=== PATIENT | male | born 1970 | race Caucasian/White ===

== ENCOUNTER → 2018-02-08 | Outpatient (CLI) | payer MEDICAID ==
[~2018-02-08] MED LIST: CATHETER FLUSH 10 ML SYR IV PRN; REGADENOSON 0.4 MG/5 ML SYR (LEXISCAN) IV ONE
[2018-02-08 09:40] VITALS: BP 128/90
[2018-02-08 11:55] VITALS: BP 120/81
--- NOTE | 2018-02-08 11:55 | Cardiology Stress Test Report ---
Stress Test Report Type of NM Stress Test: Test Type: LEXISCAN 0.4MG/5ML Date of Procedure/Referring: Date of Procedure: Feb 08, 2018 PCP Geraldine Nicholson MD Admitting Physician Geraldine Nicholson MD Indications: Chest pain Baseline Heart Rate: 87 Baseline Blood Pressure: Blood Pressure Systolic: 120 Blood Pressure Diastolic: 81 Baseline EKG: Baseline EKG: sinus rhythm Summary: The patient was brought to the stress lab after informed consent was taken. Lexiscan stress test was performed according to the protocol. 0.4 mg of IV Lexiscan was given. Low-grade exercise was performed. Baseline EKG showed sinus rhythm at 87 BPM. Blood pressure 120/81 mmHg. Maximum heart rate 121 BPM and blood pressure 146/90 mmHg. Patient did not have any chest pain, EKG changes or arrhythmias during the stress test. 10.54 mCi of Myoview were given for rest imaging and 32.3 mCi of Myoview was given for stress imaging. Transient ischemic dilatation score was 1.08. EF 66 percent with no wall motion abnormalities. Normal perfusion during rest and stress. Conclusion: Pharmacological stress test was negative for ischemia. Normal LV function with no wall motion abnormalities. Normal perfusion during rest and stress imaging. Bibi COOK MD Feb 08, 2018 11:55 am
== END ==
LOC: CARD 08:09
PROVIDERS: ATTEND Pediatrics
DX: R07.89 Other chest pain (principal)
CPT/HCPCS: 78452; 93017

== ENCOUNTER 2018-03-01 11:13 | Outpatient (RCR) | payer MEDICAID | END 2018-05-30 | disposition home or self-care (01) | LOC: CARD 11:13 | PROVIDERS: ATTEND Pediatrics | DX: R55 Syncope and collapse (principal) ==

== ENCOUNTER → 2018-03-27 | Outpatient (CLI) | payer MEDICAID | LOC: CARD 10:34 | PROVIDERS: ATTEND Pediatrics | DX: R55 Syncope and collapse (principal) | CPT/HCPCS: 93306 ==

== ENCOUNTER → 2019-10-11 | Outpatient (CLI) | payer MEDICAID ==
--- NOTE | 2019-10-11 13:47 | Diagnostic Imaging Report ---
INDICATION: Palpable lump above the umbilicus TECHNIQUE: Multiple real time keith scale sonographic images were obtained of the abdominal wall. CORRELATION STUDY: None FINDINGS: Ultrasound imaging of the anterior abdominal wall demonstrates what appears to be 3 focal areas of abdominal wall hernia defect. One area is located in and around the level of the umbilicus. There is what appears to be herniated fat with a somewhat stalk-like appearance. The herniated contents measuring approximately 2.8 x 1.0 x 2.2 cm. An additional area slightly superior to this with herniated contents measures approximately 2.1 x 1.6 x 1.0 cm. A 3rd area noted in the left upper quadrant is present. There is some abnormal movement with Valsalva. A definitive hernia defect however cannot be discretely localized. IMPRESSION: 1.Two midline abdominal wall hernia defects with what appears to be herniated fat. Question of potential 3rd hernia defect along the left upper quadrant abdominal wall. If further imaging evaluation desired, CT imaging would likely be an additional diagnostic utility. Dictated by: Dictated on workstation # [id number]
== END ==
LOC: RAD 09:43
PROVIDERS: ATTEND Nurse Practitioner Family
DX: K42.9 Umbilical hernia without obstruction or gangrene (principal)
CPT/HCPCS: 76705

== ENCOUNTER 2019-11-06 05:38 | Outpatient (CLI) | payer MEDICAID ==
[~2019-11-06] VITALS: Ht 170.2 cm; Wt 97.7 kg
[2019-11-06] MEDS ORDERED: MULT-1102 PO (10:02)
[2019-11-06] MEDS ORDERED: PANT40TA3 PO (10:02)
[2019-11-06] MEDS ORDERED: HYDR25TA4 PO (10:02)
[2019-11-06] MEDS ORDERED: DIVA-21 PO (10:02)
[2019-11-06] MEDS ORDERED: ALPR1TAB7 PO (10:02)
[2019-11-06] MEDS ORDERED: RISP1TAB3 PO (10:02)
[2019-11-06] MEDS ORDERED: QUET100T69 PO (10:02)
[2019-11-06] MEDS ORDERED: ATOR40TA70 PO (10:02)
[2019-11-06] MEDS ORDERED: NAPR-915 PO (10:02)
[2019-11-07] MEDS ORDERED: HYDR-34 PO (12:02)
== END 2019-11-06 10:07 | disposition home or self-care (01) ==
LOC: PREOP 05:38
PROVIDERS: ATTEND Surgery
DX: Z01.818 Encounter for other preprocedural examination (principal)

== ENCOUNTER 2019-11-07 09:33 | Day surgery (SDC) | payer MEDICAID ==
--- NOTE | 2019-11-06 10:12 | HISTORY AND PHYSICAL ---
DATE OF SERVICE: HISTORY AND PHYSICAL PROCEDURE DATE: 11/07/2019. ATTENDING PHYSICIAN: Dr. Gricel Moya. HISTORY OF PRESENT ILLNESS: The patient is a 49-year-old male who was referred over to us for pain and bulge in the umbilical region. The patient reports he has noticed this for the last 2-3 years and believes this has become slightly larger in size. He reports that he did have a laparoscopic cholecystectomy in 2011. He reports that he was seen by his primary care physician and an ultrasound was performed, which did show abdominal wall hernia defect and around the level of the umbilicus what appears to be herniated fat. There is also an additional hernia slightly superior to this. PAST MEDICAL HISTORY: Depression, ADHD, PTSD, OCD, anxiety, bipolar, hypercholesterolemia, hypertension, arthritis, gastroesophageal reflux disease, history of alcoholism, history of IV drug use, history of pancreatitis, a suicide attempt in 2014, and agoraphobia with panic disorder. PAST SURGICAL HISTORY: ORIF 1988, laparoscopic cholecystectomy in 2011. ALLERGIES: DILAUDID, LUVOX. MEDICATIONS: Atorvastatin 40 mg daily, Depakote ER 500 mg daily, hydrochlorothiazide 25 mg daily, naproxen 500 mg b.i.d. p.r.n., potassium daily, Protonix 40 mg daily, quetiapine fumarate 100 mg 1-1/2 tablets at bedtime, Risperdal 1 mg b.i.d., multivitamin, and Xanax 1 mg b.i.d. SOCIAL HISTORY: Previous for IV drug use, previous for alcohol. FAMILY HISTORY: Father with lung cancer, diabetes, myocardial infarction, and hypertension. Grandmother with breast cancer. Grandparent with diabetes, myocardial infarction. Grandmother and grandfather with DVT. Vital signs - blood pressure is 118/60. Current weight is 211.3, 5 feet 7 inches. REVIEW OF SYSTEMS: Well-nourished male with a mental health disease. He is not experiencing any shortness of breath or difficulty breathing. No chest pain, palpitations or diaphoresis. No nausea or vomiting. He does report episodes of abdominal pain in the umbilical region. No diarrhea or constipation. No red blood per rectum. No dark tarry stools. No fever or chills. No recent inadvertent weight loss. All other review of systems is negative. PHYSICAL EXAMINATION: CHEST: Clear. Good breath sounds bilaterally. HEART: Regular, no murmurs. EXTREMITIES: No lower extremity edema. Negative Homans sign. HEENT: No scleral icterus. NECK: No cervical lymphadenopathy. ABDOMEN: Soft, nondistended. With patient performing Valsalva maneuver, there is an incisional hernia at the level of the umbilicus, which is painful upon palpation; however, it does appear to be reducible. With the patient lying and performing stomach crunch, he also does have a diastasis recti noted. SKIN: Warm, dry and pink. NEUROLOGIC: Awake, alert, and oriented x3. ASSESSMENT AND PLAN: A 49-year-old male with a symptomatic incisional hernia, who also has a diastasis recti. At this time, we will recommend proceeding with repair of the incisional hernia. The risks and benefits of the procedure as well as the procedure and home care instructions were explained to the patient. The patient verbalized understanding of instructions and agrees to proceed as planned. At this time, we will proceed with scheduling the patient for an incisional hernia repair with mesh. Job ID: [id number] DocumentID: [id number] Dictated Date: 11/05/2019 09:22:08 Sand Polisher Date: 11/05/2019 10:37:57 Dictated By: DAVE NAYLOR
[2019-11-07] VITALS (12 sets, daily range): BP systolic 34–146; BP diastolic 72–91
[~2019-11-07] VITALS: Ht 170.2 cm; Wt 97.7 kg
[~2019-11-07 09:33] MED LIST changes: +ALPR1TAB7 PO; +ATOR40TA70 PO; -CATHETER FLUSH 10 ML SYR IV PRN; +DIVA-21 PO; +HYDR25TA4 PO; +MULT-1102 PO; +NAPR-915 PO; +PANT40TA3 PO; +QUET100T69 PO; -REGADENOSON 0.4 MG/5 ML SYR (LEXISCAN) IV ONE; +RISP1TAB3 PO
[2019-11-07] MEDS ORDERED: BUP/EPI 0.5% 1:200,000 (SENSORCAINE) 30 ML VIAL ONE (09:43)
[2019-11-07] MEDS: LACTATED RINGERS 1,000 ML IV PRN ×2 (10:00→12:28)
[2019-11-07] MEDS ORDERED: ceFAZolin 2 GM/50 ML NS 50 ML IV ONE (10:00)
--- NOTE | 2019-11-07 10:49 | Progress Note-Pre Operative ---
Pre-Operative Progress Note H&P Reviewed The H&P was reviewed, patient examined and no changes noted. Date Seen by Provider: Nov 07, 2019 Time Seen by Provider: 10:30 Date H&P Reviewed: Nov 07, 2019 Time H&P Reviewed: 10:30 Pre-Operative Diagnosis: ventral abd inc hernia, reducible COURTNEY PERALTA MD Nov 07, 2019 10:49
[2019-11-07] MEDS ORDERED: MIDAZOLAM 2 MG/2 ML (VERSED) VIAL ONE ×2 (10:59→11:35)
[2019-11-07] MEDS ORDERED: ACETAMINOPHEN 325 MG TABLET PO PRN (11:00)
[2019-11-07] MEDS ORDERED: morphine INJ 10 MG/ML 1ML (SYR OR VIAL) IVP PRN ×2 (11:00)
[2019-11-07] MEDS ORDERED: ONDANSETRON 4 MG/2 ML (SDV) Z0FRAN IVP PRN ×2 (11:00→13:15)
[2019-11-07] MEDS ORDERED: oxyCODONE/APAP 5/325MG (PERCOCET 5) TABLET PO PRN (11:00)
[2019-11-07] MEDS ORDERED: MIDAZOLAM 2 MG/2 ML (VERSED) VIAL IVP ONE (11:15)
[2019-11-07] MEDS ORDERED: ONDANSETRON 4 MG/2 ML (SDV) Z0FRAN ONE (11:34)
[2019-11-07] MEDS ORDERED: DEXAMETHASONE 10 MG/ML (DECADRON) 1 ML VIAL ONE (11:34)
[2019-11-07] MEDS ORDERED: fentaNYL INJECTION 100 MCG/2 ML AMP ONE ×2 (11:34→12:30)
[2019-11-07] MEDS ORDERED: SEVOFLURANE (ULTANE) 15 ML INHAL SOLN ONE (11:34)
[2019-11-07] MEDS ORDERED: LIDOCAINE PF 2% 5 ML (XYLOCAINE) VIAL ONE (11:34)
[2019-11-07] MEDS ORDERED: proPOfol 200 MG/20 ML (DIPRIVAN) VIAL IV ONE (11:34)
[2019-11-07] MEDS ORDERED: HYDR-34 PO (12:02)
--- NOTE | 2019-11-07 12:03 | Discharge Inst-Surgical ---
D/C Lap Instructions-KATHRYN New, Converted, or Re-Newed RX: RX on Chart Follow Up Appt in 2 weeks Activity as tolerated No driving for 24 hours No driving while on pain medications Incentive Spirometry use every 2 hours while awake Regular Diet Symptoms to Report: Fever over 101 degree F, Nausea/Vomiting Infection Signs and Symptoms to report: Increased redness, Foul odor of wound, Increased drainage Bathing instructions: May shower Operative Area Clean/Dry; Keep incision clean/dry If any problems/questions: Contact your physician or go to Emergency Room COURTNEY PERALTA MD Nov 07, 2019 12:03
[2019-11-07] MEDS ORDERED: morphine INJ 10 MG/ML 1ML (SYR OR VIAL) IVP ONE (13:15)
[2019-11-07] MEDS ORDERED: fentaNYL INJECTION 100 MCG/2 ML AMP IVP ONE (13:15)
--- NOTE | 2019-11-07 14:06 | Progress Note-Post Operative ---
Post-Operative Progess Note Surgeon (s)/Head Of Stock (s) Surgeon COURTNEY PERALTA MD Head Of Stock: wanda ruth UNDERWRITING CLERK Pre-Operative Diagnosis ventral abd inc hernia, reducible Post-Operative Diagnosis same Procedure & Operative Findings Date of Procedure 11/07/19 Procedure Performed/Findings ventral abd inc hernia repair with mesh. Anesthesia Type general LMA Estimated Blood Loss Estimated blood loss (mL): minimal Specimens/Packing Specimens Removed hernia sac COURTNEY PERALTA MD Nov 07, 2019 14:06
--- NOTE | 2019-11-07 15:06 | Anesthesia-General Post-Op ---
General Patient Condition Mental Status/LOC: Same as Preop Cardiovascular: Satisfactory Nausea/Vomiting: Absent Respiratory: Satisfactory Pain: Controlled Complications: Absent Post Op Complications Complications None Follow Up Care/Instructions Patient Instructions None needed. Anesthesia/Patient Condition Patient Condition Patient is doing well, no complaints, stable vital signs, no apparent adverse anesthesia problems. SAMIA ROBERTSON DO Nov 07, 2019 15:06
--- NOTE | 2019-11-07 21:57 | OPERATIVE REPORT ---
DATE OF SERVICE: ATTENDING PRIMARY CARE PHYSICIAN: Dr. Gricel Moya. PREOPERATIVE DIAGNOSIS: Symptomatic reducible ventral abdominal incisional hernia. POSTOPERATIVE DIAGNOSIS: Symptomatic reducible ventral abdominal incisional hernia. PROCEDURE: Open ventral abdominal hernia repair with mesh. SURGEON: Courtney Peralta MD. TECHNICAL ACCOUNT REPRESENTATIVE: Colton Dyson APRN. ANESTHESIA: General endotracheal. ESTIMATED BLOOD LOSS: Minimal. FINDINGS: Small umbilical hernia. He also does have a component of diastasis recti in the epigastric region; however, no additional hernias. DISPOSITION: The patient tolerated the procedure well. INDICATIONS: The patient is a 49-year-old male who was referred to us for pain and bulge in the umbilical region. He noticed this several years ago, but has grown larger in size and painful. He does lift weights regularly and states that he was doing an activity and felt an outpouching, which increased pain over time. Upon examination, he was found to have a reducible hernia; however, very tender to palpation. DESCRIPTION OF PROCEDURE: The patient was brought to the operating room, laid supine on the table. After adequate IV pain and sedative medications and general endotracheal intubation, the abdomen was prepped and draped in standard surgical fashion. A 0.5% Marcaine with epinephrine was used to anesthetize the supraumbilical rim along the previous skin incision from his laparoscopic cholecystectomy. The subcutaneous tissue was then dissected down using cautery. The hernia sac was identified and completely dissected out. The hernia content was omental fat, which was excised including the sac under direct visualization using electrocautery with visualization of good hemostasis. The omental adhesions towards the superior aspect of the anterior abdominal wall were then bluntly dissected using a finger. A 6.4 cm coated polypropylene mesh was then placed into the defect, which was approximately 2 cm in size and sutured to the fascia concentrically in an interrupted fashion transfascially using 0 Prolene sutures. Good hemostasis was observed. The umbilicus was then pexy'd to the fascia using 3-0 Vicryl interrupted suture and the subcutaneous tissue was then reapproximated using 3-0 Vicryl interrupted sutures. Skin was closed using 4-0 Monocryl running subcuticular suture. Wound was then cleaned and covered with Dermabond followed by tonsil sponges followed by 4 x 4 gauze and large Op-Site. The patient tolerated the procedure well. We will start IV normal pain medication as well as a clear liquid diet. Once he is tolerating clears, has good pain control with oral pain medications, ambulating well, we will discharge him home. He will be instructed to do absolutely no heavy lifting or exertion for the first 2 weeks and then slowly increase activity as tolerated in a gradual stepwise fashion until he reaches 6 weeks from the surgery date and then he has no restrictions. Job ID: [id number] DocumentID: [id number] Dictated Date: 11/07/2019 12:53:55 Catheter Builder Date: 11/07/2019 21:56:17 Dictated By: COURTNEY PERALTA MD
== END 2019-11-07 15:20 | disposition home or self-care (01) ==
LOC: SDC 09:33
PROVIDERS: ATTEND Surgery
DX: K43.2 Incisional hernia without obstruction or gangrene (principal); K42.9 Umbilical hernia without obstruction or gangrene; K66.0 Peritoneal adhesions (postprocedural) (postinfection); Z11.2 Encounter for screening for other bacterial diseases; F90.9 Attention-deficit hyperactivity disorder, unspecified type; F43.10 Post-traumatic stress disorder, unspecified; F41.9 Anxiety disorder, unspecified; F31.9 Bipolar disorder, unspecified; E78.00 Pure hypercholesterolemia, unspecified; I10 Essential (primary) hypertension; M19.91 Primary osteoarthritis, unspecified site; K21.9 Gastro-esophageal reflux disease without esophagitis; F10.21 Alcohol dependence, in remission; F40.01 Agoraphobia with panic disorder; Z87.19 Personal history of other diseases of the digestive system; Z91.5 Personal history of self-harm; Z79.899 Other long term (current) drug therapy
CPT/HCPCS: 87081

== ENCOUNTER 2021-02-15 22:57 | Emergency (ER) | payer MEDICAID ==
[~2021-02-15] VITALS: Ht 170 cm; Wt 86.0 kg
[~2021-02-15 22:57] MED LIST changes: +HYDR-34 PO; -PANT40TA3 PO; +PANT40TA52 PO; +QUET100T33 PO; -QUET100T69 PO; -RISP1TAB3 PO; +RISP1TAB93 PO
[2021-02-15] MEDS ORDERED: ASPIRIN 81 MG CHEW (CHILDREN'S ASA) PO ONE (23:15)
[2021-02-15] MEDS ORDERED: NITROGLYCERIN 0.4 MG SL TABS BTL 25'S SL PRN (23:15)
[2021-02-15 23:18] LABS: BASOPHILS # (AUTO) 0.1 10^3/uL (0.0-0.1); BASOPHILS % (AUTO) 1 % (0-10); EOSINOPHILS # (AUTO) 0.1 10^3/uL (0.0-0.3); EOSINOPHILS % (AUTO) 1 % (0-10); HEMATOCRIT 48 % (40-54); HEMOGLOBIN 16.2 g/dL (13.3-17.7); LYMPHOCYTES # (AUTO) 2.7 10^3/uL (1.0-4.0); LYMPHOCYTES % (AUTO) 29 % (12-44); MEAN CORPUSCULAR HEMOGLOBIN 31 pg (25-34); MEAN CORPUSCULAR HGB CONC 34 g/dL (32-36); MEAN CORPUSCULAR VOLUME 93 fL (80-99); MEAN PLATELET VOLUME 9.3 fL (9.0-12.2); MONOCYTES # (AUTO) 0.8 10^3/uL (0.0-1.0); MONOCYTES % (AUTO) 9 % (0-12); NEUTROPHILS # (AUTO) 5.7 10^3/uL (1.8-7.8); NEUTROPHILS % (AUTO) 61 % (42-75); PLATELET COUNT 248 10^3/uL (130-400); WHITE BLOOD COUNT 9.3 10^3/uL (4.3-11.0)
[2021-02-15 23:28] LABS: INR 0.9 (0.8-1.4); PARTIAL THROMBOPLASTIN TIME 28 SEC (24-35); PROTHROMBIN TIME PATIENT 12.8 SEC (12.2-14.7)
[2021-02-15 23:29] LABS: ALBUMIN 4.5 GM/DL (3.2-4.5); CHLORIDE 98 MMOL/L (98-107); POTASSIUM 3.3 MMOL/L (3.6-5.0); SODIUM 139 MMOL/L (135-145)
[2021-02-15 23:31] LABS: AMYLASE 31 U/L (25-125); CALCIUM 9.6 MG/DL (8.5-10.1)
[2021-02-15 23:32] LABS: GLUCOSE 112 MG/DL (70-105); TOTAL PROTEIN 8.1 GM/DL (6.4-8.2)
[2021-02-15 23:33] LABS: CARBON DIOXIDE 27 MMOL/L (21-32)
[2021-02-15 23:34] LABS: BILIRUBIN,TOTAL 0.4 MG/DL (0.1-1.0)
[2021-02-15 23:35] LABS: ALKALINE PHOSPHATASE 93 U/L (40-136)
[2021-02-15 23:36] LABS: CREATININE SERUM 1.11 MG/DL (0.60-1.30); GFR ESTIMATED > 60
[2021-02-15 23:37] LABS: BUN/CREATININE RATIO 17
[2021-02-15 23:38] LABS: ALANINE AMINOTRANSFERASE 33 U/L (0-55); MAGNESIUM 1.9 MG/DL (1.6-2.4)
[2021-02-15 23:39] LABS: CREATINE KINASE 221 U/L (30-200); LIPASE 42 U/L (8-78)
[2021-02-15 23:47] LABS: CREATINE KINASE MB 3.3 NG/ML (<6.6)
[2021-02-16 00:14] LABS: BILIRUBIN,URINE NEGATIVE (NEGATIVE); CLARITY,URINE CLEAR; COLOR,URINE YELLOW; GLUCOSE, URINE (UA) NEGATIVE (NEGATIVE); KETONES,URINE NEGATIVE (NEGATIVE); LEUKOCYTE ESTERASE ,URINE NEGATIVE (NEGATIVE); NITRITE,URINE NEGATIVE (NEGATIVE); PROTEIN,URINE NEGATIVE (NEGATIVE)
[2021-02-16 00:22] LABS: BACTERIA,URINE NEGATIVE /HPF; SQUAMOUS EPITHELIAL CELL,UR RARE /HPF
[2021-02-16 00:29] LABS: AMPHETAMINE SCREEN, URINE POSITIVE (NEGATIVE); BARBITURATE SCREEN URINE NEGATIVE (NEGATIVE); BENZODIAZEPINES SCREEN URINE NEGATIVE (NEGATIVE); CANNABINOID SCREEN, URINE NEGATIVE (NEGATIVE); COCAINE SCREEN URINE NEGATIVE (NEGATIVE); METHADONE STAT NEGATIVE (NEGATIVE); METHAMPHETAMINE SCREEN URINE S POSITIVE (NEGATIVE); OPIATE SCREEN URINE NEGATIVE (NEGATIVE); OXYCODONE STAT NEGATIVE (NEGATIVE); PROPOXYPHENE STAT NEGATIVE (NEGATIVE); TRICYCLIC ANTIDEPRESSANTS SCRE POSITIVE (NEGATIVE)
[2021-02-16] MEDS ORDERED: KETOROLAC 30 MG/ML VIAL IVP STA (00:29)
[2021-02-16] MEDS ORDERED: PANTOPRAZOLE 40 MG (PROTONIX) VIAL IV ONE (00:30)
[2021-02-16] MEDS ORDERED: ONDANSETRON 4 MG/2 ML (SDV) Z0FRAN IVP ONE (00:30)
[2021-02-16] MEDS ORDERED: KCL 10 MEQ TAB (MICRO K) PO ONE (00:30)
[2021-02-16 01:06] LABS: FIBRIN DEGRADATION PRODUCTS < 0.27 UG/ML (0.00-0.49)
--- NOTE | 2021-02-16 02:03 | ED Chest Pain ---
General Chief Complaint: Chest Pain Stated Complaint: CHEST PAIN Source: patient (DIFFICULT HISTORIAN, SPEECH RAPID AND ERRATIC--DIFFICULT TO KEEP ON SUBJECT) History of Present Illness Date Seen by Provider: Feb 15, 2021 Time Seen by Provider: 23:08 Initial Comments PT ARRIVES VIA POV C/O CHEST PAIN SINCE AROUND 1500 TODAY PAIN BEGAN IMMEDIATELY AFTER SMOKING "ICE" / METH STATES PAIN IS IN CENTER OF CHEST, AND RADIATES DOWN LEFT ARM NO SHORTNESS OF BREATH NO PALPITATIONS NO DIZZINESS OR SYNCOPE NO SWEATS NO SWELLING IN LEGS/ FEET HAS NAUSEA, BUT STATES HE ALWAYS HAS NAUSEA STATES HE TOOK 2 OF HIS MOM'S NITROGLYCERINE AND ASPIRIN AND PAIN WENT AWAY, THEN PAIN CAME BACK AROUND 1800 TONIGHT AND HAS CONTINUED STATES HE TOOK "1000 MG OF SEROQUEL" PRIOR TO ARRIVAL--STATES IT IS HIS "NORMAL DOSE" DENIES HISTORY OF SIMILAR PT HAS LONG HISTORY OF IV DRUG USE, INCLUDING "ICE" / METH, AND COCAINE, WELL IV ANABOLIC STEROIDS STATES NOW HE MOSTLY JUST SMOKES "ICE" / METH PT HAS LONG HISTORY OF ALCOHOL ABUSE--20 BEERS / DAY--CLAIMS NO ALCOHOL SINCE MARCH 2020 PT STATES HE DOES NOT SMOKE CIGARETTES DENIES HISTORY OF CHEST PAIN PCP: [facility] Allergies and Home Medications Allergies Coded Allergies: hydromorphone (Verified Adverse Reaction, Unknown, caused bp to drop, 11/06/19) Home Medications Alprazolam 1 Mg Tablet, 1 MG PO BID PRN for ANXIETY, (Reported) Atorvastatin Calcium 40 Mg Tablet, 40 MG PO HS, (Reported) Divalproex Sodium 500 Mg Tab.er.24h, 500 MG PO BID, (Reported) Hydrochlorothiazide 25 Mg Tablet, 25 MG PO DAILY, (Reported) Hydrocodone Bit/Acetaminophen 1 Ea Tablet, 1 EACH PO Q4H PRN for PAIN-MODERATE Prescribed by: COURTNEY PERALTA on 11/07/19 1202 Multivit-Min/Folic/Vit K/Lycop 1 Each Tablet, 1 EACH PO DAILY, (Reported) Naproxen 500 Mg Tablet, 500 MG PO BID, (Reported) Pantoprazole Sodium 40 Mg Tablet.dr, 40 MG PO DAILY, (Reported) Pantoprazole Sodium 40 Mg Tablet.dr, 40 MG PO DAILY Prescribed by: GLADYS MCLEAN on 02/16/21 0242 Quetiapine Fumarate 100 Mg Tablet, 100 MG PO HS, (Reported) Risperidone 1 Mg Tablet, 1 MG PO BID, (Reported) Patient Home Medication List Home Medication List Reviewed: Yes Review of Systems Review of Systems Constitutional: no symptoms reported; No diaphoresis, No dizziness, No fever EENTM: No Symptoms Reported Respiratory: No Symptoms Reported; Denies Cough, Denies Shortness of Air Cardiovascular: See HPI, Chest Pain; Denies Edema, Denies Lightheadedness, Denies Palpitations, Denies Syncope Gastrointestinal: See HPI; Denies Abdominal Pain; Nausea; Denies Vomiting Genitourinary: No Symptoms Reported Musculoskeletal: no symptoms reported; No back pain Skin: no symptoms reported Psychiatric/Neurological: See HPI, Anxiety Endocrine: No Symptoms Reported Hematologic/Lymphatic: No Symptoms Reported Past Cplgqon-Aommdq-Pugsby Hx Past Med/Social Hx: Reviewed and Corrections made Patient Social History Alcohol Use: Past History (20 BEERS / DAY) Drug of Choice: +IV METH, COCAINE, ANABOLIC STEROIDS-NOW SMOKES "ICE"/METH Smoking Status: Never a Smoker 2nd Hand Smoke Exposure: No Recent Hopitalizations: No Immunizations Up To Date Date of Influenza Vaccine: May 30, 2019 Seasonal Allergies Seasonal Allergies: No Past Medical History Surgeries: Yes (JAW FRACTURE/REPAIR;UMBILICAL HERNIA REPAIR) Abdominal, Gallbladder Respiratory: No Cardiac: Yes High Cholesterol, Hypertension Neurological: Yes Headaches /Migraines, Neuropathy Genitourinary: No Gastrointestinal: Yes (CHOLECYSTECTOMY-HAD PANCREATITIS PRIOR TO CHOLECYSTE CTOMY;UMB HERNIA REPAIR) Abdominal Hernia, Pancreatitis, Gall Bladder Disease Musculoskeletal: Yes Arthritis, Chronic Back Pain, Fractures Endocrine: No HEENT: Yes Tinnitis Cancer: No Psychosocial: Yes (POLYSUBSTANCE ABUSE) Anxiety, PTSD, Bipolar, Depression Integumentary: No (TATTOOS) Blood Disorders: No Family Medical History SOCIAL HISTORY: -ETOH--DRANK 20 BEERS A DAY, STATES NONE SINCE MARCH OF 2020 -DRUGS--+ IV "ICE"/ METH USE, + IV COCAINE USE, + IV ANABOLIC STEROID USE. STATES NOW HE MOSTLY SMOKES "ICE"/ METH. -DENIES SMOKING CIGARETTES Physical Exam Vital Signs Vital Signs - First Documented 02/15/21 02/16/21 23:04 02:52 Temp 35.6 Pulse 99 Resp 20 B/P (MAP) 138/112 (121) Pulse Ox 99 O2 Delivery Room Air Capillary Refill : Height, Weight, BMI Height: '" Weight: lbs. oz. kg; 33.72 BMI Method: General Appearance: No Apparent Distress, WD/WN, Anxious, Other (SPEECH VERY RAPID, AND ERRATIC, DIFFICULT TO KEEP ON SUBJECT) Neck: Normal Inspection Respiratory: Chest Non Tender, Normal Breath Sounds, No Accessory Muscle Use, No Respiratory Distress Cardiovascular: Regular Rate, Rhythm, No Murmur Gastrointestinal: Non Tender, Soft Extremity: Normal Inspection, Normal Range of Motion Neurologic/Psychiatric: Alert, Oriented x3, No Motor/Sensory Deficits, presser hand II- XII Norm as Tested Skin: Normal Color, Warm/Dry, Tattoos/Piercings (MULTIPLE TATTOOS) Progress/Results/Core Measures Results/Orders Lab Results Laboratory Tests Test 02/15/21 23:10 02/16/21 00:06 02/16/21 02:06 Range/Units White Blood Count 9.3 4.3-11.0 10^3/uL Red Blood Count 5.23 4.30-5.52 10^6/uL Hemoglobin 16.2 13.3-17.7 g/dL Hematocrit 48 40-54 % Mean Corpuscular Volume 93 80-99 fL Mean Corpuscular Hemoglobin 31 25-34 pg Mean Corpuscular Hemoglobin Concent 34 32-36 g/dL Red Cell Distribution Width 12.0 10.0-14.5 % Platelet Count 248 130-400 10^3/uL Mean Platelet Volume 9.3 9.0-12.2 fL Immature Granulocyte % (Auto) 0 % Neutrophils (%) (Auto) 61 42-75 % Lymphocytes (%) (Auto) 29 12-44 % Monocytes (%) (Auto) 9 0-12 % Eosinophils (%) (Auto) 1 0-10 % Basophils (%) (Auto) 1 0-10 % Neutrophils # (Auto) 5.7 1.8-7.8 10^3/uL Lymphocytes # (Auto) 2.7 1.0-4.0 10^3/uL Monocytes # (Auto) 0.8 0.0-1.0 10^3/uL Eosinophils # (Auto) 0.1 0.0-0.3 10^3/uL Basophils # (Auto) 0.1 0.0-0.1 10^3/uL Immature Granulocyte # (Auto) 0.0 0.0-0.1 10^3/uL Prothrombin Time 12.8 12.2-14.7 SEC INR Comment 0.9 0.8-1.4 Activated Partial Thromboplast Time 28 24-35 SEC D-Dimer < 0.27 0.00-0.49 UG/ML Sodium Level 139 135-145 MMOL/L Potassium Level 3.3 L 3.6-5.0 MMOL/L Chloride Level 98 98-107 MMOL/L Carbon Dioxide Level 27 21-32 MMOL/L Anion Gap 14 5-14 MMOL/L Blood Urea Nitrogen 19 H 7-18 MG/DL Creatinine 1.11 0.60-1.30 MG/DL Estimat Glomerular Filtration Rate > 60 BUN/Creatinine Ratio 17 Glucose Level 112 H 70-105 MG/DL Calcium Level 9.6 8.5-10.1 MG/DL Corrected Calcium 9.2 8.5-10.1 MG/DL Magnesium Level 1.9 1.6-2.4 MG/DL Total Bilirubin 0.4 0.1-1.0 MG/DL Aspartate Amino Transf (AST/SGOT) 28 5-34 U/L Alanine Aminotransferase (ALT/SGPT) 33 0-55 U/L Alkaline Phosphatase 93 40-136 U/L Total Creatine Kinase 221 H 30-200 U/L Creatine Kinase MB 3.3 <6.6 NG/ML Myoglobin 90.3 10.0-92.0 NG/ML Troponin I < 0.028 < 0.028 <0.028 NG/ML B-Type Natriuretic Peptide < 10.0 <100.0 PG/ML Total Protein 8.1 6.4-8.2 GM/DL Albumin 4.5 3.2-4.5 GM/DL Amylase Level 31 25-125 U/L Lipase 42 8-78 U/L Serum Alcohol < 10 <10 MG/DL Urine Color YELLOW Urine Clarity CLEAR Urine pH 7.0 5-9 Urine Specific [place] 1.025 H 1.016-1.022 Urine Protein NEGATIVE NEGATIVE Urine Glucose (UA) NEGATIVE NEGATIVE Urine Ketones NEGATIVE NEGATIVE Urine Nitrite NEGATIVE NEGATIVE Urine Bilirubin NEGATIVE NEGATIVE Urine Urobilinogen 0.2 < = 1.0 MG/DL Urine Leukocyte Esterase NEGATIVE NEGATIVE Urine RBC (Auto) NEGATIVE NEGATIVE Urine RBC NONE /HPF Urine WBC NONE /HPF Urine Squamous Epithelial Cells RARE /HPF Urine Crystals NONE /LPF Urine Bacteria NEGATIVE /HPF Urine Casts NONE /LPF Urine Mucus NEGATIVE /LPF Urine Culture Indicated NO Urine Opiates Screen NEGATIVE NEGATIVE Urine Oxycodone Screen NEGATIVE NEGATIVE Urine Methadone Screen NEGATIVE NEGATIVE Urine Propoxyphene Screen NEGATIVE NEGATIVE Urine Barbiturates Screen NEGATIVE NEGATIVE Ur Tricyclic Antidepressants Screen POSITIVE H NEGATIVE Urine Phencyclidine Screen NEGATIVE NEGATIVE Urine Amphetamines Screen POSITIVE H NEGATIVE Urine Methamphetamines Screen POSITIVE H NEGATIVE Urine Benzodiazepines Screen NEGATIVE NEGATIVE Urine Cocaine Screen NEGATIVE NEGATIVE Urine Cannabinoids Screen NEGATIVE NEGATIVE Valproic Acid (Depakene) Level 32.2 L 50.0-100.0 UG/ML My Orders Orders - GLADYS MCLEAN K DO Alcohol (02/15/21 23:14) Amylase (02/15/21 23:14) BNP (02/15/21 23:14) Cbc With Automated Diff (02/15/21:14) Comprehensive Metabolic Panel (02/15/21 23:14) Creatine Kinase (02/15/21 23:14) Creatine Kinase Mb (02/15/21 23:14) Drug Screen Stat (Urine) (02/15/21 23:14) Lipase (02/15/21 23:14) Magnesium (02/15/21 23:14) Protime With Inr (02/15/21 23:14) Partial Thromboplastin Time (02/15/21 23:14) Ua Culture If Indicated (02/15/21 23:14) Myoglobin Serum (02/15/21 23:14) Troponin I (02/15/21 23:14) Chest 1 View, Ap/Pa Only (02/15/21 23:14) Ed Iv/Invasive Line Start (02/15/21 23:14) Nitroglycerin 0.4 Mg Btl 25's (Nitrostat (02/15/21 23:15) Aspirin Chewable Tablet (Baby Aspirin Ch (02/15/21 23:15) O2 (02/16/21 00:05) Monitor-Rhythm Ecg Trace Only (02/16/21 00:05) Potassium Chloride (Tablet) (Klor Con Ta (02/16/21 00:30) Ketorolac Injection (Toradol Injection) (02/16/21 00:29) Ondansetron Injection (Zofran Injectio (02/16/21 00:30) Pantoprazole Injection (Protonix Injecti (02/16/21 00:30) Fibrin Degradation Products (02/15/21 23:10) Ekg Tracing (02/16/21 01:56) Troponin I (02/16/21 01:56) Valproic Acid (02/16/21 02:43) Ekg Tracing (02/15/21 23:06) Medications Given in ED Vital Signs/I&O 02/15/21 02/15/21 02/16/21 23:04 23:04 02:52 Temp 35.6 35.6 Pulse 99 73 Resp 20 16 B/P (MAP) 138/112 (121) 120/82 (121) Pulse Ox 99 O2 Delivery Room Air Room Air Room Air Progress Progress Note : Progress Note GIVEN ASPIRIN AND NTG X 1 WITH RELIEF OF PAIN SLEPT THROUGH REMAINDER OF ER STAY 0030--CHEST PAIN IS GONE, NOW COMPLAINS OF SOME EPIGASTRIC PAIN, C/O HEADACHE DUE TO NTG, AND NAUSEA. MEDICATIONS GIVEN WITH COMPLETE RELIEF OF SYMPTOMS PT HELD IN ER AND 3 HOUR REPEAT TROPONIN AND EKG WAS DONE AND WAS UNCHANGED PT IS SYMPTOM-FREE AT DISMISSAL PT FEELS COMFORTABLE GOING HOME Initial ECG Impression Date: Feb 15, 2021 Initial ECG Impression Time: 23:06 Initial ECG Rate: 97 Initial ECG Rhythm: Normal Sinus EKG : EKG Time: 02:02 Rate: 83 Rhythm: Normal Sinus ECG Comparisson: Unchanged Diagnostic Imaging Comments CXR--NO ACUTE PROCESS, PENDING RADIOLOGIST REVIEW Reviewed: Reviewed by Me Departure Impression Primary Impression: Chest pain Additional Impressions: Epigastric pain Illicit drug use Methamphetamine use Disposition: 01 HOME, SELF-CARE Condition: Improved Departure-Patient Inst. Referrals: [facility] (PCP/Family) Primary Care Physician Patient Instructions: Chest Pain (DC), Drug Abuse and Drug Addiction (DC), Methamphetamine Add. Discharge Instructions: HOME, REST NO DRUGS!! NO ALCOHOL!! NO SMOKING!! FOLLOW UP WITH YOUR DR IN 1-2 DAYS FOR FURTHER CARE, RETURN TO ER IF SYMPTOMS RETURN All discharge instructions reviewed with patient and/or family. Voiced understanding. Scripts Pantoprazole Sodium (Protonix) 40 Mg Tablet. 40 MG PO DAILY, #15 TAB Prov: GLADYS MCLEAN DO 02/16/21 GLADYS MCLEAN DO Feb 16, 2021 02:02
[2021-02-16] MEDS ORDERED: PANT40TA2 PO (02:42)
[2021-02-16 02:52] VITALS: BP 120/82
--- NOTE | 2021-02-16 05:56 | Diagnostic Imaging Report ---
EXAMINATION: Portable erect AP chest at 1119 hours. INDICATION: Chest pain. There are no prior studies available for comparison. FINDINGS: The heart size is within normal limits. The lungs are clear. There is no evidence for failure, pneumonia or for pleural effusion. The mediastinum is not widened. The osseous structures are intact. External cardiac monitoring electrodes are noted. IMPRESSION: There is no evidence for active disease. Dictated by: Dictated on workstation # [id number]
== END 2021-02-16 02:52 | disposition home or self-care (01) ==
LOC: EDUNIT# 22:57 → ER 23:00
DX: R07.89 Other chest pain (principal); R10.13 Epigastric pain; F15.90 Other stimulant use, unspecified, uncomplicated; F19.90 Other psychoactive substance use, unspecified, uncomplicated; I10 Essential (primary) hypertension; E78.00 Pure hypercholesterolemia, unspecified; G43.909 Migraine, unspecified, not intractable, without status migrainosus; F41.9 Anxiety disorder, unspecified; F31.9 Bipolar disorder, unspecified; F43.10 Post-traumatic stress disorder, unspecified; Z88.5 Allergy status to narcotic agent
CPT/HCPCS: 71045; 80053; 80164; 80306; 81000; 82150; 82550; 82553; 83690; 83735; 83874; 83880; 84484 ×2; 85025; 85379; 85610; 85730; 93005 ×2; 93041; 99284; G0480; 36415; 80320

== ENCOUNTER 2021-03-07 04:37 | Emergency (ER) | payer MEDICAID ==
[~2021-03-07] VITALS: Ht 170 cm; Wt 86.0 kg
[~2021-03-07 04:37] MED LIST changes: +PANT40TA2 PO
[2021-03-07] MEDS ORDERED: NS IV 1000 ML 1,000 ML IV SCH (05:00)
[2021-03-07] MEDS ORDERED: ASPIRIN 81 MG CHEW (CHILDREN'S ASA) PO ONE (05:00)
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
[2021-03-07 05:07] LABS: BASOPHILS # (AUTO) 0.1 10^3/uL (0.0-0.1); BASOPHILS % (AUTO) 1 % (0-10); EOSINOPHILS % (AUTO) 0 % (0-10); HEMATOCRIT 41 % (40-54); HEMOGLOBIN 14.3 g/dL (13.3-17.7); LYMPHOCYTES # (AUTO) 2.2 10^3/uL (1.0-4.0); LYMPHOCYTES % (AUTO) 22 % (12-44); MEAN CORPUSCULAR HEMOGLOBIN 31 pg (25-34); MEAN CORPUSCULAR HGB CONC 35 g/dL (32-36); MEAN CORPUSCULAR VOLUME 89 fL (80-99); MEAN PLATELET VOLUME 9.5 fL (9.0-12.2); MONOCYTES # (AUTO) 0.9 10^3/uL (0.0-1.0); MONOCYTES % (AUTO) 9 % (0-12); NEUTROPHILS # (AUTO) 6.8 10^3/uL (1.8-7.8); NEUTROPHILS % (AUTO) 68 % (42-75); PLATELET COUNT 218 10^3/uL (130-400); WHITE BLOOD COUNT 10.1 10^3/uL (4.3-11.0)
[2021-03-07 05:17] LABS: AMPHETAMINE SCREEN, URINE POSITIVE (NEGATIVE); BARBITURATE SCREEN URINE NEGATIVE (NEGATIVE); BENZODIAZEPINES SCREEN URINE NEGATIVE (NEGATIVE); CANNABINOID SCREEN, URINE NEGATIVE (NEGATIVE); COCAINE SCREEN URINE NEGATIVE (NEGATIVE); METHADONE STAT NEGATIVE (NEGATIVE); METHAMPHETAMINE SCREEN URINE S POSITIVE (NEGATIVE); OPIATE SCREEN URINE NEGATIVE (NEGATIVE); OXYCODONE STAT NEGATIVE (NEGATIVE); PROPOXYPHENE STAT NEGATIVE (NEGATIVE); TRICYCLIC ANTIDEPRESSANTS SCRE POSITIVE (NEGATIVE)
[2021-03-07 05:20] LABS: ALBUMIN 4.2 GM/DL (3.2-4.5)
[2021-03-07 05:21] LABS: CHLORIDE 101 MMOL/L (98-107); POTASSIUM 3.9 MMOL/L (3.6-5.0); SODIUM 138 MMOL/L (135-145)
[2021-03-07 05:22] LABS: CALCIUM 9.3 MG/DL (8.5-10.1)
[2021-03-07 05:23] LABS: GLUCOSE 107 MG/DL (70-105); TOTAL PROTEIN 7.5 GM/DL (6.4-8.2)
[2021-03-07 05:24] LABS: CARBON DIOXIDE 22 MMOL/L (21-32)
[2021-03-07 05:25] LABS: BILIRUBIN,TOTAL 0.4 MG/DL (0.1-1.0)
[2021-03-07 05:26] LABS: ALKALINE PHOSPHATASE 96 U/L (40-136)
[2021-03-07 05:27] LABS: CREATININE SERUM 0.95 MG/DL (0.60-1.30); GFR ESTIMATED > 60
[2021-03-07 05:28] LABS: BUN/CREATININE RATIO 15
[2021-03-07 05:29] LABS: ALANINE AMINOTRANSFERASE 58 U/L (0-55); MAGNESIUM 1.7 MG/DL (1.6-2.4)
[2021-03-07 05:30] LABS: CREATINE KINASE 1331 U/L (30-200)
[2021-03-07] MEDS ORDERED: LACTATED RINGERS 1,000 ML IV STA (05:44)
[2021-03-07 06:15] VITALS: BP 140/97
--- NOTE | 2021-03-07 07:51 | Diagnostic Imaging Report ---
Clinical indications: Patient with chest pain. Exam: Portable chest x-ray upright view. Comparisons: Chest x-ray dated 02/15/2021. Findings: Lungs/pleura: Lungs are clear. There is no pneumothorax. There is no pleural effusion. Mediastinum: Unremarkable. Pulmonary vasculature: Unremarkable. Heart: Unremarkable. Bones/extrathoracic soft tissue: There are degenerative spurs involving the thoracic spine. Impression: There is no radiographic evidence of acute cardiopulmonary process. Dictated by: Dictated on workstation # [id number]
== END 2021-03-07 06:16 | disposition home or self-care (01) ==
LOC: EDUNIT# 04:37 → ER 04:40
DX: F15.90 Other stimulant use, unspecified, uncomplicated (principal); M62.82 Rhabdomyolysis; E86.0 Dehydration; I10 Essential (primary) hypertension; G89.29 Other chronic pain; M54.9 Dorsalgia, unspecified; E78.00 Pure hypercholesterolemia, unspecified; F41.9 Anxiety disorder, unspecified; F31.9 Bipolar disorder, unspecified; Z88.5 Allergy status to narcotic agent; Z79.891 Long term (current) use of opiate analgesic; Z79.899 Other long term (current) drug therapy
CPT/HCPCS: 71045; 80053; 80306; 82550; 83735; 83874; 84484; 85025; 93005; 99284; G0480; 36415; 80320